=== PATIENT | female | born 1990 | race Caucasian/White ===

== ENCOUNTER 2018-04-30 01:38 | Emergency (ER) | payer MEDICAID ==
--- NOTE | 2018-04-30 03:26 | ER Document Report ---
ED GI/ - General Chief Complaint: Vaginal Bleeding Stated Complaint: VAGINAL BLEEDING Time Seen by Provider: 04/30/18 03:20 Notes: Patient is a 28-year-old female comes emergency department for chief complaint of vaginal bleeding. She states she is about 14 weeks gestation, , she follows with [facility]. She denies trauma, nausea vomiting , dysuria, vaginal discharge, sexual intercourse today. She states that she knows she was bleeding when she got in bed, she had some blood trickling down her leg. Minimal cramping. No current pain. She takes vitamins and hypertension medications. TRAVEL OUTSIDE OF THE [place] IN LAST 30 DAYS: No - Related Data Allergies/Adverse Reactions: No Known Allergies Allergy (Verified 04/30/18 03:59) Past Medical History - General Information source: Patient - Social History Smoking Status: Never Smoker Frequency of alcohol use: None Drug Abuse: None Lives with: Family Family History: Reviewed & Not Pertinent - Medical History Medical History: Negative Surgical Hx: Negative - Immunizations Immunizations up to date: Yes Hx Diphtheria, Pertussis, Tetanus Vaccination: Yes Review of Systems - Review of Systems Constitutional: No symptoms reported EENT: No symptoms reported Cardiovascular: No symptoms reported Respiratory: No symptoms reported Gastrointestinal: See HPI Genitourinary: No symptoms reported Female Genitourinary: See HPI Musculoskeletal: No symptoms reported Skin: No symptoms reported Hematologic/Lymphatic: No symptoms reported Neurological/Psychological: No symptoms reported Physical Exam - Vital signs Vitals: Temp Pulse Resp BP Pulse Ox 98.6 F 99 18 142/87 H 100 04/30/18 02:06 04/30/18 02:06 04/30/18 02:06 04/30/18 02:06 04/30/18 02:06 - Notes Notes: GENERAL: Alert, interacts well. No acute distress. HEAD: Normocephalic, atraumatic. EYES: Pupils equal, round, and reactive to light. Extraocular movements intact. ENT: Oral mucosa moist, tongue midline. NECK: Full range of motion. Supple. Trachea midline. LUNGS: Clear to auscultation bilaterally, no wheezes, rales, or rhonchi. No respiratory distress. HEART: Regular rate and rhythm. No murmur ABDOMEN: Soft, non-tender. Non-distended. Bowel sounds present in all 4 quadrants. EXTREMITIES: Moves all 4 extremities spontaneously. No edema, normal radial and dorsalis pedis pulses bilaterally. No cyanosis. BACK: no cervical, thoracic, lumbar midline tenderness. No saddle anesthesia, normal distal neurovascular exam. NEUROLOGICAL: Alert and oriented x3. Normal speech. [cranial nerves II through XII grossly intact]. PSYCH: Normal affect, normal mood. SKIN: Warm, dry, normal turgor. No rashes or lesions noted. Course - Re-evaluation Re-evalutation: Patient initially had some bleeding, this is practically resolved. She has no pain on my examination. Soft nontender abdomen, well-appearing patient. Unremarkable vital signs other than mild hypertension, patient is already being treated for hypertension. No lower extremity swelling, headache, or other concerning findings in regards to this. CBC unremarkable. HCG as expected, urinalysis shows blood probably contamination, white blood cells, nonspecific. RhoGam is not indicated. Ultrasound showing living intrauterine with no abruption, no placenta previa, however it does show subchorionic hemorrhage. No additional concerning findings, cervix closed. Patient asymptomatic on reevaluation. Discussed findings in detail, recommendations, follow-up, and return precautions. Will cover for possible UTI with Keflex in addition to this, this was discussed. Patient states satisfaction and agreement with plan. - Vital Signs Vital signs: Temp Pulse Resp BP Pulse Ox 97.7 F 79 14 138/80 H 98 04/30/18 05:20 04/30/18 05:20 04/30/18 05:20 04/30/18 05:20 04/30/18 05:20 - Laboratory Result Diagrams: 04/30/18 03:20 Laboratory results interpreted by me: 04/30/18 04/30/18 03:20 03:46 Beta HCG, Quant 01801.00 H Urine Protein 30 H Urine Blood LARGE H Ur Leukocyte Esterase TRACE H Discharge - Discharge Clinical Impression: Vaginal bleeding before 22 weeks gestation Condition: Stable Disposition: HOME, SELF-CARE Additional Instructions: Your ultrasound shows a living intrauterine , there is a subchorionic bleed, please use precautions to help this reabsorb. Recommendation is to avoid lifting, jumping, running, or any significant physical activity including sexual intercourse until cleared by TECHNICAL PROFESSIONAL. Follow-up closely with TECHNICAL PROFESSIONAL for additional evaluation and management. We are covering you with cephalexin antibiotic to treat possible urinary tract infection as well. Return for any concerning symptoms including heavy bleeding, passing out, severe pain, or any other concerning or worsening symptoms. Prescriptions: Cephalexin Monohydrate [Keflex 500 mg Capsule] 500 mg PO BID #10 capsule Forms: Return to Work
[2018-04-30 03:31] LABS: ABSOLUTE EOSINOPHILS # (AUTO) 0.1 10^3/uL (0.0-0.6); ABSOLUTE LYMPHOCYTES (AUTO) 1.1 10^3/uL (0.5-4.7); ABSOLUTE MONOCYTES (AUTO) 0.6 10^3/uL (0.1-1.4); ABSOLUTE NEUT (AUTO) 5.8 10^3/uL (1.7-8.2); BASOPHILS % (AUTO) 0.3 % (0-2); EOSINOPHILS % (AUTO) 1.3 % (0-6); HEMATOCRIT 37.1 % (36.0-47.0); LYMPHOCYTES % (AUTO) 14.5 % (13-45); MEAN CORPUSCULAR HEMOGLOBIN 29.4 pg (27.0-33.4); MEAN CORPUSCULAR HGB CONC 34.9 g/dL (32.0-36.0); MEAN CORPUSCULAR VOLUME 84 fl (80-97); MONOCYTES % (AUTO) 7.4 % (3-13); PLATELET COUNT 320 10^3/uL (150-450); RED BLOOD COUNT 4.41 10^6/uL (3.72-5.28); RED CELL DISTRIBUTION WIDTH 12.4 % (11.5-14.0); SEGMENTED NEUTROPHILS % (AUTO) 76.5 % (42-78); TOTAL CELLS COUNTED % (AUTO) 100 %; WHITE BLOOD COUNT 7.6 10^3/uL (4.0-10.5)
[2018-04-30 04:45] LABS: APPEARANCE,URINE SLIGHTLY-CLOUDY; BILIRUBIN,URINE NEGATIVE (NEGATIVE); COLOR,URINE YELLOW; GLUCOSE, URINE NEGATIVE (NEGATIVE); KETONES,URINE NEGATIVE (NEGATIVE); LEUKOCYTE ESTERASE,URINE TRACE (NEGATIVE); NITRITE,URINE NEGATIVE (NEGATIVE); PROTEIN,URINE 30 mg/dL (NEGATIVE); URINE SPECIFIC GRAVITY 1.011; UROBILINOGEN,URINE NEGATIVE mg/dL (<2.0)
--- NOTE | 2018-04-30 05:05 | RADIOLOGY REPORT (SQ) ---
EXAM DESCRIPTION: US GREATER THAN 14 WEEKS COMPLETED DATE/TME: 04/30/2018 03:24 CLINICAL HISTORY: 28 years Female, vaginal bleeding, abd cramping Comparison: 6.27.18 TECHNIQUE/LIMITATION: Targeted OB sonogram for requested parameters only. FINDINGS: EGA is 14w6d with DAVID of 10/23/2018 EFW: Not performed. Cardiac activity: 155-bpm. LVP: 3.9-cm Placenta: Anterior. 3.2 x 3.9 x 0.8 cm subchorionic hypoechoic avascular collection posteriorly consistent with a perigestational hematoma. No direct evidence of placental abruption. No placenta previa. Presentation: Vertex Cervical length: 3.2-cm. Closed appearance. Very limited anatomic survey due to early gestational age. There is visualization of a three vessel cord, cord insertion, stomach, and upper-lower extremities within normal limits. IMPRESSION: 3.9 cm perigestational hematoma. Living intrauterine measures 14w 6d.
[2018-04-30] MEDS ORDERED: CEPHALEXIN 500 MG CAPSULE PO ONE (05:18)
[2018-04-30 05:28] VITALS: BP 138/80
== END 2018-04-30 05:27 | disposition home or self-care (01) ==
LOC: ER 01:38
DX: O46.8X9 Other antepartum hemorrhage, unspecified trimester (principal); O16.9 Unspecified maternal hypertension, unspecified trimester; Z79.899 Other long term (current) drug therapy; Z3A.00 Weeks of gestation of pregnancy not specified
CPT/HCPCS: 36415; 76805; 81001; 84702; 85025; 86900; 86901; 93976; 99284

== ENCOUNTER 2018-09-04 13:09 | Outpatient (CLI) | payer MEDICAID | END 2018-09-04 14:18 | disposition home or self-care (01) | LOC: LC 13:09 | PROVIDERS: ATTEND Obstetrics & Gynecology | PROC: 4A1HXCZ Monitoring of Products of Conception, Cardiac Rate, External Approach (ICD-10-PCS; principal; 2018-09-04) | DX: Z34.83 Encounter for supervision of other normal pregnancy, third trimester (principal) | CPT/HCPCS: 59025 ==

== ENCOUNTER 2018-09-11 14:58 | Outpatient (CLI) | payer MEDICAID ==
--- NOTE | 2018-09-11 15:01 | Non Stress Test Report ---
Non Stress Test Datetime Report Generated by CPN: 09/11/2018 15:01 DEMOGRAPHIC Test Number: 1 EGA NST: 32.3 INDICATION Indication for Study: Ordered by Provider MONITORING Monitor Explained: Monitor Explained; Test Explained Time on Monitor: 09/04/2018 13:54 Time off Monitor: 09/04/2018 14:14 NST Duration: 20 NST INTERVENTIONS NST Interventions: PO Hydration; Reposition Patient Physician Notified NST: K. Abreu, CNM BABY A: [id number] BABY A Movement : Present Contraction Frequency : none FHR Baseline : 150 Accelerations : 15X15 Decelerations : None Variability : Moderate 6-25bpm NST Review: Meets Criteria for Reactive NST NST Review and Verified By : Elizabeth Camp RNC NST Results: Reactive NST REPORT Report Trigger: Send Report
[2018-09-11 15:53] LABS: ABSOLUTE EOSINOPHILS # (AUTO) 0.1 10^3/uL (0.0-0.6); ABSOLUTE LYMPHOCYTES (AUTO) 0.9 10^3/uL (0.5-4.7); ABSOLUTE MONOCYTES (AUTO) 0.4 10^3/uL (0.1-1.4); ABSOLUTE NEUT (AUTO) 5.7 10^3/uL (1.7-8.2); BASOPHILS % (AUTO) 0.7 % (0-2); HEMATOCRIT 36.8 % (36.0-47.0); HEMOGLOBIN 12.6 g/dL (12.0-15.5); MEAN CORPUSCULAR HEMOGLOBIN 28.6 pg (27.0-33.4); MEAN CORPUSCULAR HGB CONC 34.2 g/dL (32.0-36.0); MEAN CORPUSCULAR VOLUME 84 fl (80-97); MONOCYTES % (AUTO) 6.1 % (3-13); PLATELET COUNT 318 10^3/uL (150-450); RED BLOOD COUNT 4.41 10^6/uL (3.72-5.28); RED CELL DISTRIBUTION WIDTH 12.9 % (11.5-14.0); SEGMENTED NEUTROPHILS % (AUTO) 79.2 % (42-78); TOTAL CELLS COUNTED % (AUTO) 100 %; WHITE BLOOD COUNT 7.2 10^3/uL (4.0-10.5)
[2018-09-11 16:01] LABS: APPEARANCE,URINE SLIGHTLY-CLOUDY; BILIRUBIN,URINE NEGATIVE (NEGATIVE); COLOR,URINE YELLOW; GLUCOSE, URINE NEGATIVE (NEGATIVE); KETONES,URINE NEGATIVE (NEGATIVE); LEUKOCYTE ESTERASE,URINE NEGATIVE (NEGATIVE); NITRITE,URINE NEGATIVE (NEGATIVE); PROTEIN,URINE NEGATIVE (NEGATIVE); UROBILINOGEN,URINE NEGATIVE mg/dL (<2.0)
--- NOTE | 2018-09-11 16:02 | Non Stress Test Report ---
Non Stress Test Datetime Report Generated by CPN: 09/11/2018 16:02 DEMOGRAPHIC EGA NST: 33.3 INDICATION Indication for Study: Ordered by Provider MONITORING Monitor Explained: Monitor Explained; Test Explained; Patient Verbalized Understanding Time on Monitor: 09/11/2018 15:12 Time off Monitor: 09/11/2018 15:56 NST Duration: 44 NST INTERVENTIONS NST Interventions: PO Hydration Physician Notified NST: K.Abreu, CNM BABY A Movement : Present Contraction Frequency : 0 FHR Baseline : 140 Accelerations : 15X15 Decelerations : None Variability : Moderate 6-25bpm NST Review: Meets Criteria for Reactive NST NST Review and Verified By : NELLIE Streeter Results: Reactive NST REPORT Report Trigger: Send Report
[2018-09-11 16:11] LABS: ALANINE AMINOTRANSFERASE 20 U/L (9-52); ALBUMIN 3.6 g/dL (3.5-5.0); ALKALINE PHOSPHATASE 92 U/L (38-126); ANION GAP 11 (5-19); ASPARTATE AMINO TRANSFERASE 22 U/L (14-36); BILIRUBIN,DIRECT 0.3 mg/dL (0.0-0.4); BILIRUBIN,TOTAL 0.4 mg/dL (0.2-1.3); BLOOD UREA NITROGEN 10 mg/dL (7-20); CARBON DIOXIDE 21 mmol/L (22-30); CHLORIDE 106 mmol/L (98-107); GLUCOSE 87 mg/dL (75-110); POTASSIUM 4.1 mmol/L (3.6-5.0); SODIUM 138.2 mmol/L (137-145); TOTAL PROTEIN 7.4 g/dL (6.3-8.2)
[2018-09-11 16:19] LABS: URINE AMPHETAMINES SCREEN NEGATIVE; URINE BARBITURATES SCREEN NEGATIVE; URINE BENZODIAZEPINES SCREEN NEGATIVE; URINE COCAINE SCREEN NEGATIVE; URINE MARIJUANA (THC) SCREEN NEGATIVE; URINE METHADONE SCREEN NEGATIVE; URINE PHENCYCLIDINE SCREEN NEGATIVE
[2018-09-11 16:24] LABS: UR PRO/CREAT RATIO RESULT 0.1 mg/mg (0.0-0.2); URINE CREATININE 112.9 mg/dL (16-327); URINE PROTEIN 6.5 mg/dL (<12)
== END 2018-09-11 16:47 | disposition home or self-care (01) ==
LOC: LC 14:58
PROVIDERS: ATTEND Obstetrics & Gynecology Gynecology
PROC: 4A1HXCZ Monitoring of Products of Conception, Cardiac Rate, External Approach (ICD-10-PCS; principal; 2018-09-11)
DX: O47.1 False labor at or after 37 completed weeks of gestation (principal); Z3A.33 33 weeks gestation of pregnancy
CPT/HCPCS: 36415; 59025; 80053; 80307; 81001; 82570; 83615; 84156; 84550; 85025

== ENCOUNTER 2018-09-15 14:22 | Outpatient (CLI) | payer MEDICAID ==
[2018-09-15 15:20] LABS: ABSOLUTE LYMPHOCYTES (AUTO) 0.8 10^3/uL (0.5-4.7); ABSOLUTE MONOCYTES (AUTO) 0.4 10^3/uL (0.1-1.4); BASOPHILS % (AUTO) 0.3 % (0-2); EOSINOPHILS % (AUTO) 0.7 % (0-6); HEMATOCRIT 35.8 % (36.0-47.0); HEMOGLOBIN 12.2 g/dL (12.0-15.5); LYMPHOCYTES % (AUTO) 13.1 % (13-45); MEAN CORPUSCULAR HEMOGLOBIN 28.4 pg (27.0-33.4); MEAN CORPUSCULAR HGB CONC 34.1 g/dL (32.0-36.0); MEAN CORPUSCULAR VOLUME 83 fl (80-97); MONOCYTES % (AUTO) 6.6 % (3-13); PLATELET COUNT 276 10^3/uL (150-450); RED BLOOD COUNT 4.29 10^6/uL (3.72-5.28); RED CELL DISTRIBUTION WIDTH 12.8 % (11.5-14.0); SEGMENTED NEUTROPHILS % (AUTO) 79.3 % (42-78); TOTAL CELLS COUNTED % (AUTO) 100 %; WHITE BLOOD COUNT 6.3 10^3/uL (4.0-10.5)
[2018-09-15 15:23] LABS: APPEARANCE,URINE CLEAR; BILIRUBIN,URINE NEGATIVE (NEGATIVE); COLOR,URINE YELLOW; GLUCOSE, URINE NEGATIVE (NEGATIVE); KETONES,URINE NEGATIVE (NEGATIVE); LEUKOCYTE ESTERASE,URINE TRACE (NEGATIVE); NITRITE,URINE NEGATIVE (NEGATIVE); PROTEIN,URINE NEGATIVE (NEGATIVE); URINE SPECIFIC GRAVITY 1.018; UROBILINOGEN,URINE NEGATIVE mg/dL (<2.0)
[2018-09-15 15:30] LABS: ALANINE AMINOTRANSFERASE 20 U/L (9-52); ALBUMIN 3.3 g/dL (3.5-5.0); ALKALINE PHOSPHATASE 81 U/L (38-126); ANION GAP 7 (5-19); ASPARTATE AMINO TRANSFERASE 19 U/L (14-36); BILIRUBIN,DIRECT 0.1 mg/dL (0.0-0.4); BILIRUBIN,TOTAL 0.3 mg/dL (0.2-1.3); BLOOD UREA NITROGEN 10 mg/dL (7-20); CALCIUM 9.5 mg/dL (8.4-10.2); CARBON DIOXIDE 25 mmol/L (22-30); CHLORIDE 104 mmol/L (98-107); GLUCOSE 88 mg/dL (75-110); SODIUM 135.5 mmol/L (137-145); TOTAL PROTEIN 6.7 g/dL (6.3-8.2); URIC ACID 5.5 mg/dL (2.5-6.2)
[2018-09-15 15:43] LABS: URINE BARBITURATES SCREEN NEGATIVE; URINE BENZODIAZEPINES SCREEN NEGATIVE; URINE COCAINE SCREEN NEGATIVE; URINE MARIJUANA (THC) SCREEN NEGATIVE; URINE METHADONE SCREEN NEGATIVE; URINE PHENCYCLIDINE SCREEN NEGATIVE
[2018-09-15 15:44] LABS: URINE AMPHETAMINES SCREEN NEGATIVE
[2018-09-15 15:47] LABS: UR PRO/CREAT RATIO RESULT 0.1 mg/mg (0.0-0.2); URINE CREATININE 99.9 mg/dL (16-327); URINE PROTEIN 8.9 mg/dL (<12)
== END 2018-09-15 16:05 | disposition home or self-care (01) ==
LOC: LC 14:22
PROVIDERS: ATTEND Obstetrics & Gynecology Gynecology
PROC: 4A1HXCZ Monitoring of Products of Conception, Cardiac Rate, External Approach (ICD-10-PCS; principal; 2018-09-15)
DX: O10.913 Unspecified pre-existing hypertension complicating pregnancy, third trimester (principal); Z3A.34 34 weeks gestation of pregnancy
CPT/HCPCS: 36415; 59025; 80053; 80307; 81001; 82570; 83615; 84156; 84550; 85025

== ENCOUNTER 2018-09-22 14:32 | Outpatient (CLI) | payer MEDICAID ==
--- NOTE | 2018-09-22 14:38 | Non Stress Test Report ---
Non Stress Test Datetime Report Generated by CPN: 09/22/2018 14:38 DEMOGRAPHIC EGA NST: 34.0 INDICATION Indication for Study: Chronic Hypertension; Ordered by Provider MONITORING Monitor Explained: Monitor Explained; Test Explained; Patient Verbalized Understanding Time on Monitor: 09/15/2018 14:45 Time off Monitor: 09/15/2018 15:39 NST Duration: 54 NST INTERVENTIONS NST Interventions: PO Hydration Physician Notified NST: C. Eastman, CNM BABY A: [id number] BABY A Movement : Present Contraction Frequency : 0 FHR Baseline : 145 Accelerations : 15X15 Decelerations : None Variability : Moderate 6-25bpm NST Review: Meets Criteria for Reactive NST NST Review and Verified By : NELLIE Streeter Results: Reactive NST REPORT Report Trigger: Send Report
--- NOTE | 2018-09-22 15:09 | Non Stress Test Report ---
Non Stress Test Datetime Report Generated by CPN: 09/22/2018 15:08 DEMOGRAPHIC EGA NST: 35.5 INDICATION Indication for Study: Ordered by Provider MONITORING Monitor Explained: Monitor Explained; Test Explained Time on Monitor: 09/22/2018 14:41 Time off Monitor: 09/22/2018 15:03 NST Duration: 22 NST INTERVENTIONS NST Interventions: PO Hydration; Reposition Patient Physician Notified NST: Dr. Jose BABY A Movement : Present NST Review: Meets Criteria for Reactive NST NST Review and Verified By : Elizabeth Camp RNC NST REPORT Report Trigger: Send Report
== END 2018-09-22 15:17 | disposition home or self-care (01) ==
LOC: LC 14:32
PROVIDERS: ATTEND Obstetrics & Gynecology
PROC: 4A1HXCZ Monitoring of Products of Conception, Cardiac Rate, External Approach (ICD-10-PCS; principal; 2018-09-22)
DX: O16.3 Unspecified maternal hypertension, third trimester (principal); Z3A.35 35 weeks gestation of pregnancy
CPT/HCPCS: 59025

== ENCOUNTER 2018-09-26 10:50 | Outpatient (CLI) | payer MEDICAID ==
[2018-09-26 11:51] LABS: ABSOLUTE EOSINOPHILS # (AUTO) 0.1 10^3/uL (0.0-0.6); ABSOLUTE LYMPHOCYTES (AUTO) 0.8 10^3/uL (0.5-4.7); ABSOLUTE MONOCYTES (AUTO) 0.5 10^3/uL (0.1-1.4); ABSOLUTE NEUT (AUTO) 5.6 10^3/uL (1.7-8.2); BASOPHILS % (AUTO) 0.4 % (0-2); EOSINOPHILS % (AUTO) 1.6 % (0-6); HEMATOCRIT 36.2 % (36.0-47.0); HEMOGLOBIN 12.1 g/dL (12.0-15.5); LYMPHOCYTES % (AUTO) 11.6 % (13-45); MEAN CORPUSCULAR HGB CONC 33.5 g/dL (32.0-36.0); MEAN CORPUSCULAR VOLUME 84 fl (80-97); MONOCYTES % (AUTO) 6.6 % (3-13); PLATELET COUNT 289 10^3/uL (150-450); RED BLOOD COUNT 4.33 10^6/uL (3.72-5.28); RED CELL DISTRIBUTION WIDTH 12.8 % (11.5-14.0); SEGMENTED NEUTROPHILS % (AUTO) 79.8 % (42-78); TOTAL CELLS COUNTED % (AUTO) 100 %; WHITE BLOOD COUNT 7.1 10^3/uL (4.0-10.5)
[2018-09-26 12:02] LABS: APPEARANCE,URINE SLIGHTLY-CLOUDY; BILIRUBIN,URINE NEGATIVE (NEGATIVE); COLOR,URINE YELLOW; GLUCOSE, URINE NEGATIVE (NEGATIVE); KETONES,URINE NEGATIVE (NEGATIVE); LEUKOCYTE ESTERASE,URINE MODERATE (NEGATIVE); NITRITE,URINE NEGATIVE (NEGATIVE); PROTEIN,URINE 30 mg/dL (NEGATIVE); URINE SPECIFIC GRAVITY 1.028; UROBILINOGEN,URINE NEGATIVE mg/dL (<2.0)
--- NOTE | 2018-09-26 12:21 | Non Stress Test Report ---
Non Stress Test Datetime Report Generated by CPN: 09/26/2018 12:20 DEMOGRAPHIC EGA NST: 36.2 INDICATION Indication for Study: Chronic Hypertension; Ordered by Provider MONITORING Monitor Explained: Monitor Explained; Test Explained; Patient Verbalized Understanding Time on Monitor: 09/26/2018 11:03 Time off Monitor: 09/26/2018 11:55 NST Duration: 52 NST INTERVENTIONS NST Interventions: PO Hydration Physician Notified NST: K Abreu CNM (Annotations: Data stored by [facility] on behalf of user) BABY A: [id number] BABY A Movement : Present Contraction Frequency : none FHR Baseline : 150 Accelerations : 15X15 Decelerations : None Variability : Moderate 6-25bpm NST Review: Meets Criteria for Reactive NST NST Review and Verified By : Willa Ram RN NST Results: Reactive NST REPORT Report Trigger: Send Report
[2018-09-26 12:23] LABS: ALANINE AMINOTRANSFERASE 15 U/L (9-52); ALBUMIN 3.3 g/dL (3.5-5.0); ALKALINE PHOSPHATASE 89 U/L (38-126); ANION GAP 8 (5-19); ASPARTATE AMINO TRANSFERASE 18 U/L (14-36); BILIRUBIN,DIRECT 0.2 mg/dL (0.0-0.4); BILIRUBIN,TOTAL 0.2 mg/dL (0.2-1.3); BLOOD UREA NITROGEN 13 mg/dL (7-20); CALCIUM 7.3 mg/dL (8.4-10.2); CARBON DIOXIDE 23 mmol/L (22-30); CHLORIDE 105 mmol/L (98-107); GLUCOSE 95 mg/dL (75-110); POTASSIUM 4.6 mmol/L (3.6-5.0); SODIUM 136.2 mmol/L (137-145); TOTAL PROTEIN 6.7 g/dL (6.3-8.2); URIC ACID 4.9 mg/dL (2.5-6.2)
[2018-09-26 12:36] LABS: URINE AMPHETAMINES SCREEN NEGATIVE; URINE BARBITURATES SCREEN NEGATIVE; URINE BENZODIAZEPINES SCREEN NEGATIVE; URINE COCAINE SCREEN NEGATIVE; URINE MARIJUANA (THC) SCREEN NEGATIVE; URINE METHADONE SCREEN NEGATIVE; URINE PHENCYCLIDINE SCREEN NEGATIVE
[2018-09-26 12:43] LABS: UR PRO/CREAT RATIO RESULT 0.1 mg/mg (0.0-0.2); URINE CREATININE 172.3 mg/dL (16-327)
== END 2018-09-26 12:55 | disposition home or self-care (01) ==
LOC: LC 10:50
PROVIDERS: ATTEND Obstetrics & Gynecology
PROC: 4A1HXCZ Monitoring of Products of Conception, Cardiac Rate, External Approach (ICD-10-PCS; principal; 2018-09-26)
DX: O10.913 Unspecified pre-existing hypertension complicating pregnancy, third trimester (principal); Z3A.36 36 weeks gestation of pregnancy
CPT/HCPCS: 36415; 59025; 80053; 80307; 81001; 82570; 83615; 84156; 84550; 85025

== ENCOUNTER 2018-10-01 07:06 | Inpatient (IN) | payer MEDICAID ==
[2018-10-01] MEDS ORDERED: OXYTOCIN/NORMAL SALINE 20 UNIT/1,000 ML RTUINJ IV PRN ×2 (07:11→17:32)
[2018-10-01] MEDS ORDERED: RINGERS SOLUTION,LACTATED 300 ML IV ONE (07:11)
[2018-10-01] MEDS ORDERED: RINGERS SOLUTION,LACTATED 1,000 ML IV PRN (07:11)
--- NOTE | 2018-10-01 07:41 | Admission Physical ---
Datetime Report Generated by CPN: 10/01/2018 07:41 CURRENT ADMISSION Chief Complaint: Scheduled Induction of Labor Indication for Induction: Chronic Primary/Essential HTN Admit Impression : Term, Intrauterine ; No Active Labor; Induction of Labor Admit Plan: Admit to Unit; Initiate Labor Induction Protocol ALLERGIES Medication Allergies: No Medication Allergies: No Known Allergies (09/26/2018) Latex: No Latex Allergies Food Allergies: None Environmental Allergies: None OBSTETRICAL HISTORY EDC: 10/22/2018 00:00 : 1 Para: 0 Term: 0 : 0 SAB: 0 IAB: 0 Ectopic: 0 Livin Cesareans: 0 VBACs: 0 Multiple Births: 0 Gestational Diabetes: No Rh Sensitization: No Incompetent Cervix: No YUE: No Infertility: No ART Treatment: No Uterine Anomaly: No IUGR: No Hx Previous C/S: No Macrosomia: No Hx Loss/Stillborn: No PIH: No Hx : No Placenta Previa/Abruption: No Depression/PP Depression: No PTL/PROM: No Post Hemorrhage: No Current Procedures: Ultrasound; NST Obstetrical History Comments: 2017, HTN SEE RECORDS Alcohol: No Marijuana : No Cocaine: No Other Illicit Drugs: No Cigarettes: Never Smoker. [id number] MEDICAL HISTORY Diabetes: No Blood Transfusion: No Pulmonary Disease (Asthma, TB): No Breast Disease: No Hypertension: Yes Collator Hand Surgery: No Heart Disease: No Hosp/Surgery: No Autoimmune Disorder: No Anesthetic Complications: No Kidney Disease: No Abnormal Pap Smear: No Neuro/Epilepsy: No Psychiatric Disorders: No Other Medical Diseases: No Hepatitis/Liver Disease: No Significant Family History: No Varicosities/Phlebitis: No Trauma/Violence : No Thyroid Dysfunction: No Medical History Comments: HTN since age 21 years old on procardia. INFECTIOUS HISTORY Gonorrhea: No Genital Herpes: No Chlamydia: No Tuberculosis: No Syphilis: No Hepatitis: No HIV/AIDS Exposure: No Rash or Viral Illness: No HPV: No PHYSICAL EXAM General: Normal HEENT: Normal Neurologic: Normal Thyroid: Normal Heart: Normal Lungs: Normal Breast: Normal Back: Normal Abdomen: Normal Genitourinary Exam: Normal Extremities: Normal DTRs: Normal Pelvic Type: Adequate Vital Signs: Reviewed FETUS A EGA: 37.0 FHR- Baseline: 150 Variability: Moderate 6-25bpm Accelerations: 15X15 Decelerations: None FHR Category: Category I Estimated Weight (gm): 3400 Presentation: Vertex Admit Comment: CHTN with intermittent severe range pressures. Is on procardia. Last 24 hr protein at 186. Will attempt induction today. PLANS FOR LABOR AND DELIVERY Labor and Delivery: None Pain Management: Epidural Feeding Preference: Breast Benefit of Breast Feed Discussed: Yes Circumcision: N/A INFORMED CONSENT Signature: with User ID: [email or web address]
[2018-10-01 08:07] LABS: ABSOLUTE EOSINOPHILS # (AUTO) 0.2 10^3/uL (0.0-0.6); ABSOLUTE LYMPHOCYTES (AUTO) 1.1 10^3/uL (0.5-4.7); ABSOLUTE MONOCYTES (AUTO) 0.5 10^3/uL (0.1-1.4); ABSOLUTE NEUT (AUTO) 5.2 10^3/uL (1.7-8.2); BASOPHILS % (AUTO) 0.5 % (0-2); EOSINOPHILS % (AUTO) 2.2 % (0-6); HEMATOCRIT 36.3 % (36.0-47.0); HEMOGLOBIN 12.3 g/dL (12.0-15.5); LYMPHOCYTES % (AUTO) 16.3 % (13-45); MEAN CORPUSCULAR HEMOGLOBIN 28.3 pg (27.0-33.4); MEAN CORPUSCULAR HGB CONC 33.8 g/dL (32.0-36.0); MEAN CORPUSCULAR VOLUME 84 fl (80-97); MONOCYTES % (AUTO) 7.2 % (3-13); PLATELET COUNT 285 10^3/uL (150-450); RED BLOOD COUNT 4.35 10^6/uL (3.72-5.28); SEGMENTED NEUTROPHILS % (AUTO) 73.8 % (42-78); TOTAL CELLS COUNTED % (AUTO) 100 %
[2018-10-01] MEDS ORDERED: LIDOCAINE 1% INJ-PF (10 MG/ML) 30 ML SDV ONE (08:17)
[2018-10-01] MEDS ORDERED: MISOPROSTOL 0.1 MG TABLET ONE ×2 (08:17→13:16)
[2018-10-01] MEDS ORDERED: OXYTOCIN 10 UNIT/ML VIAL ONE (08:17)
[2018-10-01] MEDS ORDERED: MISOPROSTOL 0.2 MG TABLET ONE (08:17)
[2018-10-01] MEDS ORDERED: MISOPROSTOL 0.1 MG TABLET PO ONE ×2 (08:17→13:11)
[2018-10-01] MEDS ORDERED: OXYTOCIN/NORMAL SALINE 20 UNIT/1,000 ML RTUINJ ONE (08:18)
[2018-10-01] MEDS ORDERED: MISOPROSTOL 0.1 MG TABLET PV ONE ×2 (08:28→13:11)
[2018-10-01 08:35] LABS: APPEARANCE,URINE SLIGHTLY-CLOUDY; BILIRUBIN,URINE NEGATIVE (NEGATIVE); COLOR,URINE YELLOW; GLUCOSE, URINE NEGATIVE (NEGATIVE); KETONES,URINE NEGATIVE (NEGATIVE); LEUKOCYTE ESTERASE,URINE LARGE (NEGATIVE); NITRITE,URINE NEGATIVE (NEGATIVE); PROTEIN,URINE 30 mg/dL (NEGATIVE); URINE SPECIFIC GRAVITY 1.029; UROBILINOGEN,URINE NEGATIVE mg/dL (<2.0)
[2018-10-01 09:05] LABS: URINE AMPHETAMINES SCREEN NEGATIVE; URINE BARBITURATES SCREEN NEGATIVE; URINE BENZODIAZEPINES SCREEN NEGATIVE; URINE COCAINE SCREEN NEGATIVE; URINE MARIJUANA (THC) SCREEN NEGATIVE; URINE METHADONE SCREEN NEGATIVE; URINE PHENCYCLIDINE SCREEN NEGATIVE
--- NOTE | 2018-10-01 09:24 | L&D Progress Notes ---
PROGRESS NOTES Datetime Report Generated by CPN: 10/01/2018 09:24 PROGRESS NOTE Impression: Reassuring Heart Rate Plan: Continue Present Management; Cervical Ripening Informed Consent Obtained: Induction of Labor Vital Signs : Reviewed; Within Normal Limits Comment: Cat 1 strip Questions answered, Epidural when needed LAST VAGINAL EXAM-NURSING Dilitation: 1.5 Effacement: 25 Station: -2 FETUS A Monitoring: External US Decelerations: None : 37.0 Estimated Weight (gm): 3400 Presentation: Vertex SIGNATURE SIGNATURE: 10,[id number];14,[id number];13,[id number] SIGNATURE: 13,[id number];14,[id number] SIGNATURE: 14,[id number] SIGNATURE: 14,[id number] SIGNATURE: 14,[id number] SIGNATURE: 14,[id number] SIGNATURE: 14,[id number] Assignment: Shankar Whalen MD Signature: with User ID: [email or web address] : with User ID: [email or web address]
--- NOTE | 2018-10-01 11:54 | L&D Progress Notes ---
PROGRESS NOTES Datetime Report Generated by CPN: 10/01/2018 11:54 PROGRESS NOTE Impression: Reassuring Heart Rate Plan: Continue Present Management; Cervical Ripening Informed Consent Obtained: Vaginal Delivery Vital Signs : Reviewed; Within Normal Limits Comment: Cat 1 strip, irreg uc's, occas variable, moderate variability FETUS C SIGNATURE: 13,[id number];14,[id number];10,[id number] Assignment: Shankar Whalen MD Signature: with User ID: [email or web address] : with User ID: [email or web address]
--- NOTE | 2018-10-01 15:06 | L&D Progress Notes ---
PROGRESS NOTES Datetime Report Generated by CPN: 10/01/2018 15:05 PROGRESS NOTE Impression: Reassuring Heart Rate Plan: Continue Present Management; Anticipate Vaginal Delivery Vital Signs : Reviewed Comment: Cat 1 strip, comfortable, #2 cytotec , minimal cervical change, cx soft FETUS A FHR - Baseline: 150 Monitoring: External US Variability: Moderate 6-25bpm Accelerations: 15X15 Decelerations: Variable FHR Category: Category I FETUS C SIGNATURE: 10,[id number];14,[id number];13,[id number] Assignment: Shankar Whalen MD Signature: with User ID: [email or web address] : with User ID: [email or web address]
--- NOTE | 2018-10-01 16:48 | L&D Progress Notes ---
PROGRESS NOTES Datetime Report Generated by CPN: 10/01/2018 16:47 PROGRESS NOTE Comment: VE 2/70/vtx/-1, + show, feeling uc's, more uncomfortable, Cat 1 strip FETUS C SIGNATURE: 13,[id number];14,[id number];10,[id number] Assignment: Shankar Whalen MD Signature: with User ID: [email or web address] : with User ID: [email or web address]
[2018-10-01] MEDS ORDERED: ACETAMINOPHEN WITH CODEINE #3 TABLET PO PRN (17:32)
[2018-10-01] MEDS ORDERED: GLYCERIN/WITCH HAZEL LEAF 1 EACH MED..PAD TP PRN (17:32)
[2018-10-01] MEDS ORDERED: ZOLPIDEM TARTRATE 5 MG TABLET PO PRN (17:32)
[2018-10-01] MEDS ORDERED: DIBUCAINE 1% OINTMENT 28 GM TP PRN (17:32)
[2018-10-01] MEDS ORDERED: PROMETHAZINE HCL 25 MG SUPP.RECT PR PRN (17:32)
[2018-10-01] MEDS ORDERED: BENZOCAINE/MENTHOL AEROSOL SPRAY 56 ML TOP PRN (17:32)
[2018-10-01] MEDS ORDERED: DIPH/PERTUSS(ACELL)/TETANUS VAC/PF 0.5 ML SYR (>=10YO) IM PRN (17:32)
[2018-10-01] MEDS ORDERED: MAGNESIUM HYDROXIDE SUSP 30 ML UDCUP PO PRN (17:32)
[2018-10-01] MEDS ORDERED: PROMETHAZINE HCL 25 MG TABLET PO PRN (17:32)
[2018-10-01] MEDS ORDERED: MEASLES,MUMPS&RUBELLA VACC/PF 0.5 ML VIAL SUBCUT PRN (17:32)
[2018-10-01] MEDS ORDERED: DIPHENHYDRAMINE HCL 25 MG CAPSULE PO PRN (17:32)
[2018-10-01] MEDS ORDERED: NA PHOS,M-B/NA PHOS,DI-BA (ADULT) 133 ML ENEMA PR PRN (17:32)
[2018-10-01] MEDS ORDERED: PSEUDOEPHEDRINE HCL 30 MG TABLET PO PRN (17:32)
[2018-10-01] MEDS ORDERED: PROMETHAZINE HCL INJ 25 MG/1 ML VIAL IV PRN (17:32)
[2018-10-01] MEDS ORDERED: ACETAMINOPHEN 650 MG SUPP.RECT PR PRN (17:32)
--- NOTE | 2018-10-01 17:35 | PDOC DELIVERY SUMMARY ---
Delivery Summary - Maternal Risk Factors: Premature Rupture Membrane Ruptured Membranes: SROM Fluids: Clear - Delivery Labor: Not In Labor, Augmentation Presentation: Vertex Uterine Contraction Monitoring: External Support Person Present: Yes Placenta: Within Normal Limits Number of Vessels (Cord): 3 Nuchal Cord: Yes - loose - Medications Type of Anesthesia:: Epidural
[2018-10-01] MEDS ORDERED: DOCUSATE SODIUM 100 MG CAPSULE PO SCH (18:00)
[2018-10-01] MEDS ORDERED: FERROUS SULFATE 325 MG TABLET PO SCH (18:00)
[2018-10-01] MEDS ORDERED: IBUPROFEN 800 MG TABLET PO SCH (22:00)
[2018-10-01] MEDS ORDERED: FAMOTIDINE 20 MG TABLET PO SCH (22:00)
[2018-10-02] MEDS ORDERED: OXYTOCIN/NORMAL SALINE 0 UNIT/0 ML RTUINJ ONE (03:26)
[2018-10-02] MEDS ORDERED: PENICILLIN G-K 5 MILLION UNIT VIAL ONE ×4 (03:26→16:59)
[2018-10-02 07:44] LABS: HEMATOCRIT 37.3 % (36.0-47.0); HEMOGLOBIN 12.7 g/dL (12.0-15.5); MEAN CORPUSCULAR HEMOGLOBIN 28.5 pg (27.0-33.4); MEAN CORPUSCULAR HGB CONC 34.1 g/dL (32.0-36.0); MEAN CORPUSCULAR VOLUME 83 fl (80-97); PLATELET COUNT 291 10^3/uL (150-450); RED BLOOD COUNT 4.47 10^6/uL (3.72-5.28); RED CELL DISTRIBUTION WIDTH 13.1 % (11.5-14.0); WHITE BLOOD COUNT 9.7 10^3/uL (4.0-10.5)
[2018-10-02] MEDS ORDERED: NIFEDIPINE 30 MG TAB.ER.24 PO ONE ×2 (08:59→20:36)
[2018-10-02] MEDS ORDERED: NIFEDIPINE 30 MG TAB.ER.24 PO SCH (09:00)
[2018-10-02] MEDS: NIFEDIPINE 30 MG TAB.ER.24 PO SCH ×2 (09:01→22:43)
[2018-10-02] MEDS ORDERED: PRENATAL VITAMIN W DHA CAPSULE PO SCH (10:00)
[2018-10-02] MEDS ORDERED: SENNOSIDES/DOCUSATE 8.6-50 MG 1 EACH TABLET PO SCH (10:00)
[2018-10-02] MEDS ORDERED: FENTANYL/BUPIVACAINE/NS/PF 300 MCG/150 ML RTUINJ EPI ONE (17:13)
[2018-10-02] MEDS ORDERED: EPHEDRINE SULFATE INJ 50 MG/1 ML AMPULE ONE (17:13)
[2018-10-02] MEDS ORDERED: BUPIVACAINE HCL 0.5 % INJ/PF 30 ML SDV ONE (17:13)
[2018-10-02] MEDS ORDERED: BUPIVACAINE HCL 0.25 % INJ/PF (2.5 MG/1 ML) 30 ML VIAL ONE (17:15)
[2018-10-02] MEDS ORDERED: OXYTOCIN/NORMAL SALINE 20 UNIT/1,000 ML RTUINJ ONE (19:43)
[2018-10-02] MEDS ORDERED: BENZOCAINE/MENTHOL AEROSOL SPRAY 56 ML TOP PRN (19:52)
[2018-10-02] MEDS ORDERED: ACETAMINOPHEN WITH CODEINE #3 TABLET PO PRN ×2 (19:52)
[2018-10-02] MEDS ORDERED: NA PHOS,M-B/NA PHOS,DI-BA (ADULT) 133 ML ENEMA PR PRN (19:52)
[2018-10-02] MEDS ORDERED: GLYCERIN/WITCH HAZEL LEAF 1 EACH MED..PAD TP PRN (19:52)
[2018-10-02] MEDS ORDERED: MAGNESIUM HYDROXIDE SUSP 30 ML UDCUP PO PRN (19:52)
[2018-10-02] MEDS ORDERED: MEASLES,MUMPS&RUBELLA VACC/PF 0.5 ML VIAL SUBCUT PRN (19:52)
[2018-10-02] MEDS ORDERED: DIPH/PERTUSS(ACELL)/TETANUS VAC/PF 0.5 ML SYR (>=10YO) IM PRN (19:52)
[2018-10-02] MEDS ORDERED: PSEUDOEPHEDRINE HCL 30 MG TABLET PO PRN (19:52)
[2018-10-02] MEDS ORDERED: PROMETHAZINE HCL 25 MG SUPP.RECT PR PRN (19:52)
[2018-10-02] MEDS ORDERED: DIBUCAINE 1% OINTMENT 28 GM TP PRN (19:52)
[2018-10-02] MEDS ORDERED: OXYTOCIN/NORMAL SALINE 20 UNIT/1,000 ML RTUINJ IV PRN (19:52)
[2018-10-02] MEDS ORDERED: MISOPROSTOL 0.2 MG TABLET PR PRN (19:52)
[2018-10-02] MEDS ORDERED: ZOLPIDEM TARTRATE 5 MG TABLET PO PRN (19:52)
[2018-10-02] MEDS ORDERED: PROMETHAZINE HCL 25 MG TABLET PO PRN (19:52)
[2018-10-02] MEDS ORDERED: PROMETHAZINE HCL INJ 25 MG/1 ML VIAL IV PRN (19:52)
[2018-10-02] MEDS ORDERED: DIPHENHYDRAMINE HCL 25 MG CAPSULE PO PRN (19:52)
[2018-10-02] MEDS ORDERED: ACETAMINOPHEN 325 MG TABLET PO PRN (19:52)
[2018-10-02] MEDS ORDERED: IBUPROFEN 800 MG TABLET ONE (20:51)
[2018-10-02] MEDS ORDERED: FAMOTIDINE 20 MG TABLET ONE (20:51)
--- NOTE | 2018-10-02 21:19 | Warning Signs in Babies ---
VOD Warning Signs Datetime Report Generated by [facility]: 10/02/2018 21:19 VOD#[id number] -Warning Signs in Babies: Viewed with Parent(s)/Family (09/04/2018 13:31:MAISHA More )
--- NOTE | 2018-10-02 21:44 | Delivery Summary ---
Del Sum A-C Datetime Report Generated by CPN: 10/02/2018 21:44 DELIVERY PERSONNEL DELIVERY PERSONNEL: [id number] Delivery Doctor:: Faiza Teixeira MD Labor and Delivery Nurse:: Annie Pleitez RNfield attendant Nurse:: Lucy Bailon RN Additional Personnel: : Anika Murdock RN MATERNAL INFORMATION Delivery Anesthesia: Epidural Medications After Delivery: Pitocin Bolus-Please Comment Meds After Delivery Comment: pitocin 20 units in 1L NS bolusing per order Maternal Complications: None Provider Comments: VFI delivered in MIKO presentation with compound right hand. Shoulders and body delivered without difficulty. Cord doubly clamped and cut and to maternal abdomen. Placenta delivered intact spontaneously. FF at U. Mother and baby stable upon provider leaving the room. Good hemostasis after repair of 2nd degree perineal tear. LABOR SUMMARY EDC: 10/22/2018 00:00 No. Babies in Womb: 1 Attempted: No Labor Anesthesia: Epidural LABOR INFORMATION Reason for Induction: Chronic Primary/Essential HTN Onset of Labor: 10/02/2018 16:50 Complete Dilatation: 10/02/2018 19:07 Cervical Ripening Agents: Cytotec @ Oxytocin: Induction Group B Beta Strep: Positive Antibiotics # of Doses: 4 Antibiotics Time of Last Dose: 1640 Name of Antibiotic Given: PCN Steroids Given: None Reason Steroids Not Administered: Not Applicable MEMBRANES Membranes Rupture Method: Spontaneous Rupture of Membranes: 10/02/2018 16:49 Length of Rupture (hr): 2.82 Amniotic Fluid Color: Clear Amniotic Fluid Amount: Small Amniotic Fluid Odor: Normal STAGES OF LABOR Stage 1 hr: 2 Stage 1 min: 17 Stage 2 hr: 0 Stage 2 min: 31 Stage 3 hr: 0 Stage 3 min: 2 Total Time in Labor hr: 2 Total Time in Labor min: 50 VAGINAL DELIVERY Episiotomy: None Laceration #1: Perineal Laceration Extension #1: Second Degree Laceration Repair: Yes Laceration Repair Note: repaired Sponge Count Correct: Yes Sharps Count Correct: Yes CSECTION DELIVERY Primary Indication: N/A Secondary Indication: N/A CSection Incidence: N/A Labor: N/A Elective: N/A CSection Incision: N/A BABY A INFORMATION Delivery Date/Time: 10/02/2018 19:38 Method of Delivery: Vaginal Born in Route : No : N/A Forceps: N/A Vacuum Extraction: N/A Shoulder Dystocia : No PRESENTATION/POSITION BABY A Presentation: Cephalic Cephalic Presentation: Vertex Vertex Position: Compound right hand Breech Presentation: N/A PLACENTA INFORMATION BABY A Placenta Delivery Time : 10/02/2018 19:40 Placenta Method of Delivery: Spontaneous Placenta Status: Delivered SCORES BABY A Heart Rate 1 min: >100 bpm Resp Effort 1 min: Good Cry Reflex Irritability 1 min: Cough or Sneeze or Pulls Away Muscle Tone 1 min: Active Motion Color 1 min: Body [place], Extremities Blue Resuscitation Effort 1 min: Tactile Stimulation SCORE 1 MIN: 9 Heart Rate 5 min: >100 bpm Resp Effort 5 min: Good Cry Reflex Irritability 5 min: Cough or Sneeze or Pulls Away Muscle Tone 5 min: Active Motion Color 5 min: Body [place], Extremities Blue Resuscitation Effort 5 min: Tactile Stimulation SCORE 5 MIN: 9 INFORMATION BABY A Gestational Age at Delivery: 37.1 Gestational Status: Early Term- 37- 38.6 Weeks Infant Outcome : Liveborn Infant Condition : Stable Infant Sex: Female IDENTIFICATION BABY A Infant Verification Date/Time: 10/02/2018 19:53 ID Band Number: [id number] Mother's Name Verified: Yes RN Verifying : C. Gambier RN S Pleitez RNC WEIGHT/LENGTH BABY A Infant Birthweight (gm): 3006 Infant Weight (lb): 6 Weight (oz): 10 Infant Length (in): 19.50 Infant Length (cm): 49.53 CORD INFORMATION BABY A No. Cord Vessels: 3 Nuchal Cord : N/A Cord Blood Taken: Yes-For Storage (Mom's Blood type +) Suction: Mouth ASSESSMENT BABY A Complications: None Physical Findings at Delivery: Within Normal Limits Skin to Skin: Yes Skin to Skin Time (min): 60 Transferred To: Nursery BABY B INFORMATION : N/A SIGNATURES Signature: with User ID: [email or web address]
[2018-10-02] MEDS: FAMOTIDINE 20 MG TABLET PO SCH (22:43)
[2018-10-02] MEDS: IBUPROFEN 800 MG TABLET PO SCH (22:43)
[2018-10-03] MEDS: IBUPROFEN 800 MG TABLET PO SCH ×3 (07:06→21:07)
[2018-10-03 07:23] LABS: HEMATOCRIT 29.9 % (36.0-47.0); MEAN CORPUSCULAR HEMOGLOBIN 28.6 pg (27.0-33.4); MEAN CORPUSCULAR HGB CONC 34.1 g/dL (32.0-36.0); MEAN CORPUSCULAR VOLUME 84 fl (80-97); PLATELET COUNT 266 10^3/uL (150-450); RED BLOOD COUNT 3.56 10^6/uL (3.72-5.28); RED CELL DISTRIBUTION WIDTH 13.2 % (11.5-14.0); WHITE BLOOD COUNT 12.8 10^3/uL (4.0-10.5)
[2018-10-03 07:24] LABS: HEMOGLOBIN 10.2 g/dL (12.0-15.5)
[2018-10-03] MEDS: NIFEDIPINE 30 MG TAB.ER.24 PO SCH ×2 (09:22→21:06)
[2018-10-03] MEDS: FAMOTIDINE 20 MG TABLET PO SCH ×2 (09:23→21:06)
[2018-10-03] MEDS: PRENATAL VITAMIN W DHA CAPSULE PO SCH (09:23)
[2018-10-03] MEDS: SENNOSIDES/DOCUSATE 8.6-50 MG 1 EACH TABLET PO SCH (09:23)
[2018-10-03] MEDS: FERROUS SULFATE 325 MG TABLET PO SCH ×2 (09:24→17:39)
[2018-10-03] MEDS: DOCUSATE SODIUM 100 MG CAPSULE PO SCH ×2 (09:24→17:40)
--- NOTE | 2018-10-03 09:48 | PDOC PROGRESS REPORT ---
Subjective-OB Progress Note for:: 10/03/18 Subjective: Doing well, holding baby, Physical Exam (OB) Vital Signs: Temp Pulse Resp BP Pulse Ox 98.8 F 84 18 136/84 H 98 10/03/18 07:58 10/03/18 07:58 10/03/18 07:58 10/03/18 07:58 10/03/18 07:58 Intake & Output 10/02/18 10/03/18 10/04/18 06:59 06:59 06:59 Weight 106.9 kg - Lochia Lochia Amount: Small 10-25 ml Lochia Color: Rubra/Red - Abdomen Description: Soft Fundal Description: Firm, Midline Fundal Height: u/u - u/2 Objective-Diagnostic Laboratory: 10/03/18 07:02 10/03/18 07:02 WBC 12.8 H RBC 3.56 L Hgb 10.2 L D Hct 29.9 L MCV 84 MCH 28.6 MCHC 34.1 RDW 13.2 Plt Count 266 Assessment and Plan(PN) - Assessment and Plan (1) Anemia due to acute blood loss Is this a current diagnosis for this admission?: Yes (2) Obstetrical laceration, second degree Is this a current diagnosis for this admission?: Yes (3) Vaginal delivery Is this a current diagnosis for this admission?: Yes - Time Spent with Patient Time with patient: Less than 15 minutes Medications reviewed and adjusted accordingly: Yes - Disposition Anticipated Discharge: Home Within: within 24 hours
[2018-10-03] MEDS ORDERED: NIFEDIPINE 30 MG TAB.ER.24 PO SCH (10:00)
[2018-10-03] MEDS ORDERED: PROMETHAZINE HCL INJ 25 MG/1 ML VIAL IV PRN (13:00)
[2018-10-03] MEDS ORDERED: MEASLES,MUMPS&RUBELLA VACC/PF 0.5 ML VIAL SUBCUT PRN (13:00)
[2018-10-03] MEDS ORDERED: DIPH/PERTUSS(ACELL)/TETANUS VAC/PF 0.5 ML SYR (>=10YO) IM PRN (13:00)
[2018-10-04] MEDS: IBUPROFEN 800 MG TABLET PO SCH (05:15)
--- NOTE | 2018-10-04 09:39 | PDOC PROGRESS REPORT ---
Subjective-OB Progress Note for:: 10/04/18 Subjective: Doing well, ready to go home, has appt for Saturday, feels good Physical Exam (OB) Vital Signs: Temp Pulse Resp BP Pulse Ox 98.1 F 88 18 129/69 H 97 10/04/18 08:05 10/04/18 08:05 10/04/18 08:05 10/04/18 08:05 10/04/18 08:05 Intake & Output 10/03/18 10/04/18 10/05/18 06:59 06:59 06:59 Intake Total 1999 Balance 1999 - PIH/Pre-Eclampsia DTR's: 1 + Clonus: Negative Headache: Absent Epigastric Pain: No Visual Changes: No - Lochia Lochia Amount: Scant < 10 ml Lochia Color: Rubra/Red - Abdomen Description: Tender, Flat Hernia Present: No Fundal Description: Firm, Midline Fundal Height: u/u - u/2 Objective-Diagnostic Laboratory: 10/03/18 07:02 Assessment and Plan(PN) - Assessment and Plan (1) Anemia due to acute blood loss Is this a current diagnosis for this admission?: Yes (2) Obstetrical laceration, second degree Is this a current diagnosis for this admission?: Yes (3) Vaginal delivery Is this a current diagnosis for this admission?: Yes - Time Spent with Patient Time with patient: Less than 15 minutes Medications reviewed and adjusted accordingly: Yes - Disposition Anticipated Discharge: Home Within: within 24 hours
--- NOTE | 2018-10-04 09:44 | PDOC DISCHARGE SUMMARY ---
Final Diagnosis Discharge Date: 10/04/18 - Final Diagnosis (1) Anemia due to acute blood loss Is this a current diagnosis for this admission?: Yes (2) Obstetrical laceration, second degree Is this a current diagnosis for this admission?: Yes (3) Vaginal delivery Is this a current diagnosis for this admission?: Yes Discharge Data - Discharge Medication Prescriptions: Ferrous Sulfate [Feosol 325 mg Tablet] 325 mg PO BID #60 tablet Home Medications: Nifedipine [Procardia XL 30 mg Tablet] 30 mg PO BID 09/04/18 Pnv No.103/Folic/Om3s/Fish Oil [ Gummies] 1 each PO DAILY 09/04/18 Ferrous Sulfate [Feosol 325 mg Tablet] 325 mg PO BID #60 tablet 10/04/18 Nifedipine [Procardia XL 30 mg Tablet] 30 mg PO Q12 tab.er.24 10/04/18 Gestational Age: 37.1 Reason(s) for Admission: Induction of Labor, PIH, Group B Strep Positive Procedures: NST, Ultrasound Intrapartum Procedure(s): Spontaneous Vaginal Delivery Complication(s): Laceration-Perineal Laceration-Degree: 2nd - Diagnosis Test Laboratory: Temp Pulse Resp BP Pulse Ox 98.1 F 88 18 129/69 H 97 10/04/18 08:05 10/04/18 08:05 10/04/18 08:05 10/04/18 08:05 10/04/18 08:05 10/01/18 10/01/18 10/02/18 07:16 07:40 07:20 RBC 4.35 4.47 Hgb 12.3 12.7 Hct 36.3 37.3 Urine Opiates Screen NEGATIVE 10/03/18 07:02 RBC 3.56 L Hgb 10.2 L D Hct 29.9 L Urine Opiates Screen - Discharge information/Instructions Discharge Activity: Activity As Tolerated, No Lifting Over 10 Pounds, Pelvic Rest Discharge Diet: As Tolerated, Regular Disposition: HOME, SELF-CARE Follow up with: [facility] in: 4, 5, Days
[2018-10-04] MEDS: FAMOTIDINE 20 MG TABLET PO SCH (10:06)
[2018-10-04] MEDS: DOCUSATE SODIUM 100 MG CAPSULE PO SCH (10:06)
[2018-10-04] MEDS: SENNOSIDES/DOCUSATE 8.6-50 MG 1 EACH TABLET PO SCH (10:06)
[2018-10-04] MEDS: NIFEDIPINE 30 MG TAB.ER.24 PO SCH (10:06)
[2018-10-04] MEDS: PRENATAL VITAMIN W DHA CAPSULE PO SCH (10:06)
[2018-10-04] MEDS: FERROUS SULFATE 325 MG TABLET PO SCH (10:06)
[2018-10-04 12:49] VITALS: BP 135/81
== END 2018-10-04 13:46 | disposition home or self-care (01) | DRG 807 ==
LOC: LR 07:06 → 2S 10-02 22:16
PROVIDERS: ADMIT Student in an Organized Health Care Education/Training Program; ATTEND Student in an Organized Health Care Education/Training Program
PROC: 10E0XZZ Delivery of Products of Conception, External Approach (ICD-10-PCS; principal; 2018-10-02)
PROC: 0KQM0ZZ Repair Perineum Muscle, Open Approach (ICD-10-PCS; 2018-10-02)
PROC: 3E0234Z Introduction of Serum, Toxoid and Vaccine into Muscle, Percutaneous Approach (ICD-10-PCS; 2018-10-04)
PROC: 3E0234Z Introduction of Serum, Toxoid and Vaccine into Muscle, Percutaneous Approach (ICD-10-PCS; 2018-10-04)
DX: O10.02 Pre-existing essential hypertension complicating childbirth (principal); Z37.0 Single live birth; O69.81X0 Labor and delivery complicated by cord around neck, without compression, not applicable or unspecified; O99.824 Streptococcus B carrier state complicating childbirth; O32.6XX0 Maternal care for compound presentation, not applicable or unspecified; O70.1 Second degree perineal laceration during delivery; O62.3 Precipitate labor; Z3A.37 37 weeks gestation of pregnancy; Z23 Encounter for immunization
CPT/HCPCS: 36415; 80307; 81005; 85025; 85027; 86592; 86850; 86900; 86901; 90471; 90686; 90715; G0008; J2540; J2590; J3010; J3490

== ENCOUNTER 2019-12-11 10:16 | Emergency (ER) | payer MEDICAID ==
--- NOTE | 2019-12-11 11:17 | ER Document Report ---
HPI - HPI Time Seen by Provider: 12/11/19 11:08 Pain Level: Denies Notes: Patient is a 29-year-old female presenting to the emergency department with concern for elevated blood pressure. Patient reports she was at her [employer] for routine exam when they found her to be hypertensive. Patient reports she has a history of hypertension and has not been on her medication for several months. She states that she stopped taking her medication as her blood pressure had nor malized. Patient denies any other symptoms to include headache. Past Medical History - General Information source: Patient - Social History Smoking Status: Never Smoker Frequency of alcohol use: None Drug Abuse: None Family History: Reviewed & Not Pertinent Patient has suicidal ideation: No Patient has homicidal ideation: No - Past Medical History Cardiac Medical History: Reports: Hx Hypertension Renal/ Medical History: Denies: Hx Peritoneal Dialysis - Immunizations Immunizations up to date: Yes Hx Diphtheria, Pertussis, Tetanus Vaccination: Yes Vertical Provider Document - CONSTITUTIONAL Notes: PHYSICAL EXAMINATION: GENERAL: Well-appearing, well-nourished and in no acute distress. HEAD: Atraumatic, normocephalic. EYES: Pupils equal round extraocular movements intact, conjunctiva are normal. ENT: Nares patent NECK: Normal range of motion LUNGS: No respiratory distress Musculoskeletal: Normal range of motion NEUROLOGICAL: Normal speech, normal gait. PSYCH: Normal mood, normal affect. SKIN: Warm, Dry, normal turgor, no rashes or lesions noted. - INFECTION CONTROL TRAVEL OUTSIDE OF THE [place] IN LAST 30 DAYS: No Course - Re-evaluation Re-evalutation: Patient is blood pressure is elevated here today x2. I will refill her blood pressure medication that she was previously taking however I cautioned her to please monitor her blood pressure closely so that her blood pressure does not drop too low. She will follow-up with her primary care provider, she will call them tomorrow to schedule an appointment. ED return precautions were discussed, patient verbalized understanding with this plan. - Vital Signs Vital signs: Temp Pulse Resp BP Pulse Ox 98.6 F 108 H 16 151/98 H 99 12/11/19 10:38 12/11/19 10:38 12/11/19 10:38 12/11/19 10:38 12/11/19 10:38 Discharge - Discharge Clinical Impression: Hypertension Qualifiers: Hypertension type: unspecified Qualified Code(s): I10 - Essential (primary) hypertension Condition: Stable Disposition: HOME, SELF-CARE Additional Instructions: Please continue to monitor your blood pressure. Please resume taking your Procardia if your blood pressure stays over 150 systolic. Please call today to schedule an appointment with your primary care provider. Return to the emergency department any new or worsening symptoms such as sudden onset headache. Prescriptions: Nifedipine [Procardia Xl 30 mg Tablet] 30 mg PO BID #[id number] Referrals: MERLINE BACA MD [Primary Care Provider] - Follow up as needed
[2019-12-11 11:19] VITALS: BP 161/107
== END 2019-12-11 11:20 | disposition home or self-care (01) ==
LOC: ER 10:16
DX: I10 Essential (primary) hypertension (principal)
CPT/HCPCS: 99283